=== PATIENT | male | born 2000 ===

== ENCOUNTER 2024-01-30 08:26 | Emergency (ER) | payer SELFPAY | END 2024-01-30 10:27 | disposition home or self-care (01) | LOC: MW.ED 08:26 | DX: S09.93XA Unspecified injury of face, initial encounter (principal); Z75.8 Other problems related to medical facilities and other health care; W20.8XXA Other cause of strike by thrown, projected or falling object, initial encounter; Y99.0 Civilian activity done for income or pay | CPT/HCPCS: 99282; 99283 ==